=== PATIENT | male | born 1985 | race Caucasian/White ===

== ENCOUNTER 2017-09-21 10:19 | Emergency (ER) | payer BC, OTHER ==
[2017-09-21 10:31] VITALS: BP 140/83; PULSE 78; TEMP 97.7; BMI 31.4
[2017-09-21] MEDS ORDERED: IBUPROFEN 600 MG TABLET (FP) PO ONE ×2 (12:40→13:02)
--- NOTE | 2017-09-21 12:47 | PDOC ---
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 Patient reports having pain to his right anterior bilateral ankle. Patient was lifted up by other workers has not put any pressure down on his right foot yet. Patient reports that he heard a pop. Patient reports the pain currently is a 6 or a 7 aching and throbbing in nature. Patient denies any numbness of right foot ankle. Occurred: reports: this morning Severity: Yes: moderate Lower Extremity Pain Location: right: ankle (b/l ) Method of Injury: Yes: fell, twisted Modifying Factors: improves with: immobilization Lower Ext. Injury Location - Specific Injury Location Ankle: right pain, right swelling (b/l ankle ) Foot: right foot pain (rt. anterior ankle ) Extremity Pain Location - Extremity Pain Location Extremity Pain Locations: right: foot (anterior ), ankle (b/l ) Past History - Past Medical History Allergies/Adverse Reactions: Allergies Allergy/AdvReac Type Severity Reaction Status Date / Time Penicillins Allergy Verified 09/21/17 10:28 Sulfa (Sulfonamide Allergy Verified 09/21/17 10:28 Antibiotics) Home Medications: Ambulatory Orders No Home Medications 0 dose .ROUTE UTDICT 09/04/13 Clindamycin [Cleocin -] 300 mg PO TID #21 capsule 09/29/13 Asthma: No COPD: No Diabetes: No HTN: No Hypercholesterolemia: No - Suicide/Smoking/Psychosocial Hx Smoking Status: No Smoking History: Former smoker Number of Cigarettes Smoked Daily: 1 Information on smoking cessation initiated: No 'Breaking Loose' booklet given: 09/29/13 Hx Alcohol Use: Yes (SOCIAL) Drug/Substance Use Hx: No Substance Use Type: None Review of Systems - Review of Systems Able to Perform ROS?: Yes Constitutional: No: Symptoms Reported HEENTM: No: Symptoms Reported Respiratory: No: Symptoms reported Cardiac (ROS): No: Symptoms Reported ABD/GI: No: Symptoms Reported : No: Symptoms Reported Musculoskeletal: Yes: Joint Pain (rt. anterior ankle, rt. b/l ankle ), Joint Swelling (rt. b/l ankle ) Integumentary: No: Symptoms Reported Neurological: No: Symptoms reported *Physical Exam - Vital Signs Last Vital Signs Temp Pulse Resp BP Pulse Ox 97.7 F 78 18 140/83 100 09/21/17 10:29 09/21/17 10:29 09/21/17 10:29 09/21/17 10:09/21/17 10:29 - Physical Exam General Appearance: Yes: Appropriately Dressed Vascular Pulses: Dorsalis-Pedis (R): 4+ Extremity: positive: Normal Capillary Refill, Tender (rt. anterior ankle, rt. b/ l ankle ), Swelling (rt. b/l ankle ). negative: Normal Range of Motion ( slightly decreased rt. 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 Patient reports having pain to his right anterior bilateral ankle. Patient was lifted up by other workers has not put any pressure down on his right foot yet. Patient reports that he heard a pop. Patient reports the pain currently is a 6 or a 7 aching and throbbing in nature. Patient denies any numbness of right foot ankle. R/O fracture rt. ankle rt. ankle/foot sprain PLAN: xray rt. ankle/foot no fracture noted kavon wrap 32 inch /aircast, crutches given follow up with ortho ibuprofen 600 mg po now 09/21/17 13:56 *DC/Admit/Observation/Transfer Diagnosis at time of Disposition: Sprain of ankle, right Qualifiers: Encounter type: initial encounter Involved ligament of ankle: unspecified ligament Qualified Code(s): S93.401A - Sprain of unspecified ligament of right ankle, initial encounter Sprain of right foot Qualifiers: Encounter type: initial encounter Qualified Code(s): S93.601A - Unspecified sprain of right foot, initial encounter - Discharge Dispostion Disposition: HOME Condition at time of disposition: Stable - Referrals Referrals: Joaquin Harding MD [Staff Physician] - - Patient Instructions Additional Instructions: Elevate your right leg as much as possible and apply ice to swollen area every hour for at least 15 minutes each time today and tomorrow Keep Kavon wrap and Aircast on during the day may take off at night and use crutches for ambulation Follow up with orthopedist as soon as possible for further evaluation Take ibuprofen as needed as directed by brim stitcher for pain Patient voiced understanding of discharge instructions and all questions were answered - Post Discharge Activity Forms/Work/School Notes: Back to Work
== END 2017-09-21 14:06 | disposition home or self-care (01) ==
LOC: JERFT 10:19
PROC: 2W3QX1Z Immobilization of Right Lower Leg using Splint (ICD-10-PCS; principal; 2017-09-21)
DX: S93.401A Sprain of unspecified ligament of right ankle, initial encounter (principal); S93.601A Unspecified sprain of right foot, initial encounter; W17.89XA Other fall from one level to another, initial encounter; Y93.H9 Activity, other involving exterior property and land maintenance, building and construction; Y92.480 Sidewalk as the place of occurrence of the external cause; Y99.0 Civilian activity done for income or pay
CPT/HCPCS: 73610-TC-RT; 73630-TC-RT; 99281-25

== ENCOUNTER 2019-07-12 12:19 | Emergency (ER) | payer OTHER ==
[2019-07-12 12:25] VITALS: BP 136/73; PULSE 73; TEMP 98.1; BMI 31.2
--- NOTE | 2019-07-12 13:12 | PDOC ---
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 He points to the anterior medial aspect of the left knee as the area of his discomfort. Past History - Past Medical History Allergies/Adverse Reactions: Allergies Allergy/AdvReac Type Severity Reaction Status Date / Time Penicillins Allergy Verified 07/12/19 12:25 Sulfa (Sulfonamide Allergy Verified 07/12/19 12:25 Antibiotics) Home Medications: Ambulatory Orders NK [No Known Home Medication] 07/12/19 Asthma: No COPD: No DVT: No Diabetes: No HTN: No Hypercholesterolemia: No - Suicide/Smoking/Psychosocial Hx Smoking Status: No Smoking History: Current every day smoker Have you smoked in the past 12 months: Yes Number of Cigarettes Smoked Daily: 10 Information on smoking cessation initiated: No 'Breaking Loose' booklet given: 09/29/13 Hx Alcohol Use: No Drug/Substance Use Hx: No Substance Use Type: None Review of Systems - Review of Systems Musculoskeletal: Yes: Joint Pain *Physical Exam - Vital Signs Last Vital Signs Temp Pulse Resp BP Pulse Ox 98.1 F 73 16 136/73 100 07/12/19 12:23 07/12/19 12:23 07/12/19 12:23 07/12/19 12:23 07/12/19 12:23 - Physical Exam Comments: 07/12/19 13:08 L knee skin color and temperature are normal, PROM 0-110 with pain at terminal flexion, extensor mechanism is intact. No medial or lateral JLT. No instability , negative apprehension, tenderness about the medial PF facet, no other areas of tenderness, thighs and calfs are soft and non tender, NVID no gross sensory or motor deficits 07/12/19 13:12 OF note there is a painful PF click which resolved during PROM General Appearance: Yes: Appropriately Dressed ED Treatment Course - RADIOLOGY Radiology Studies Ordered: Category Date Time Status KNEE 3 POS-LEFT [RAD] Stat Radiology 07/12/19 13:05 Ordered Medical Decision Making - Medical Decision Making 07/12/19 13:11 X-rays of the L knee show no fx or evidence of trauma most likely PF subluxation , WBAT f/u with ortho *DC/Admit/Observation/Transfer Diagnosis at time of Disposition: Patellofemoral pain syndrome of left knee - Discharge Dispostion Disposition: HOME Condition at time of disposition: Stable Decision to Admit order: No - Referrals Referrals: Duane Magaña DO [Staff Physician] - - Patient Instructions Additional Instructions: You may weight bear as tolerated. Tylenol and Motrin as directed for pain. Follow up with orthopedic surgery without fail in 1-2 days. Return to the Emergency Room should symptoms worsen. - Post Discharge Activity Forms/Work/School Notes: Back to Work
== END 2019-07-12 13:41 | disposition home or self-care (01) ==
LOC: JERFT 12:19
DX: M22.2X2 Patellofemoral disorders, left knee (principal); X50.1XXA Overexertion from prolonged static or awkward postures, initial encounter; Y93.89 Activity, other specified; Y92.69 Other specified industrial and construction area as the place of occurrence of the external cause; Y99.0 Civilian activity done for income or pay
CPT/HCPCS: 73562-TC-LT-FY; 99281-25

== ENCOUNTER 2021-02-07 07:33 | Emergency (ER) | payer OTHER ==
[2021-02-07 08:01] VITALS: BP 136/92; PULSE 64; TEMP 97.8; BMI 28.3
[2021-02-07] MEDS ORDERED: FLUORESCEIN NA 1 EA STRIP ONE (08:04)
== END 2021-02-07 08:40 | disposition home or self-care (01) ==
LOC: JERFT 07:33
DX: T15.01XA Foreign body in cornea, right eye, initial encounter (principal)
CPT/HCPCS: 99283-25